=== PATIENT | female | born 1980 | race Asian ===

== ENCOUNTER 2017-08-22 16:31 | Inpatient (IN) | payer SELFPAY ==
[2017-08-22 16:57] LABS: URINE HCG POC HCG NEGATIVE (Negative)
[2017-08-22 16:59] LABS: POC GLUCOSE 259 mg/dL (70-99)
[2017-08-22 17:03] LABS: BILIRUBIN,URINE NEGATIVE (NEG); COLOR,URINE YELLOW; GLUCOSE,URINE 100 mg/dL (NEG); NITRITE,URINE NEGATIVE (NEG); PH,URINE 6.5; PROTEIN,URINE 100 mg/dL (NEG-TRACE)
[2017-08-22 17:11] LABS: CLARITY,URINE HAZY
[2017-08-22 17:13] LABS: BACTERIA,URINE MANY /HPF (0-FEW); SQUAMOUS EPITHELIAL CELL,UR FEW /LPF; WBC,URINE 20-40 /HPF (0-4)
[2017-08-22 17:16] LABS: ADD MAN DIFF? NO
[2017-08-22] MEDS: fentaNYL PF VIAL 100 MCG/2 ML VIAL IV (17:20)
[2017-08-22] MEDS: IV NORMAL SALINE 1000ML BAG 1,000 ML IV (17:20)
[2017-08-22] MEDS: ONDANSETRON PF 4 MG/2 ML VIAL. IV (17:20)
[2017-08-22 17:24] LABS: BASO # 0.1 x10^3/uL (0.0-0.2); BASO % 1 % (0-3); EOS # 0.1 x10^3/uL (0.0-0.7); EOS % 1 % (0-3); HEMATOCRIT 26.7 % (36.0-47.0); HEMOGLOBIN 9.1 g/dL (12.0-15.5); LYMPH # 1.4 x10^3/uL (1.0-4.8); LYMPH % 16 % (24-48); MEAN CORPUSCULAR HEMOGLOBIN 28 pg (25-35); MEAN CORPUSCULAR HGB CONC 34 g/dL (31-37); MEAN CORPUSCULAR VOLUME 81 fL (79-100); MONO % 11 % (0-9); NEUT # 6.4 x10^3uL (1.8-7.7); NEUT % 72 % (31-73); PLATELET COUNT 396 x10^3/uL (140-400); RED BLOOD COUNT 3.31 x10^6/uL (3.50-5.40); WHITE BLOOD COUNT 8.9 x10^3/uL (4.0-11.0)
[2017-08-22 17:36] LABS: ALBUMIN 2.3 g/dL (3.4-5.0); ALBUMIN/GLOBULIN RATIO 0.4 (1.0-1.7); ALK PHOS 260 U/L (46-116); ALT (SGPT) 10 U/L (14-59); ANION GAP 9 (6-14); AST (SGOT) 16 U/L (15-37); BLOOD UREA NITROGEN 18 mg/dL (7-20); BUN/CREATININE RATIO 13 (6-20); CALCIUM 8.3 mg/dL (8.5-10.1); CARBON DIOXIDE 23 mmol/L (21-32); CHLORIDE 91 mmol/L (98-107); CREATININE 1.4 mg/dL (0.6-1.0); GFR 41.9; GLUCOSE 260 mg/dL (70-99); LIPASE 186 U/L (73-393); SODIUM 123 mmol/L (136-145); TOTAL BILIRUBIN 0.7 mg/dL (0.2-1.0); TOTAL PROTEIN 8.2 g/dL (6.4-8.2)
[2017-08-22 17:44] LABS: CREATINE KINASE 15 U/L (26-192)
[2017-08-22 17:46] LABS: TROPONINI < 0.017 ng/mL (0.000-0.055)
[2017-08-22 17:46] LABS: CKMB INDEX 3.3 % (0-4); CKMB MASS < 0.5 ng/mL (0.0-3.6)
[2017-08-22 17:48] LABS: POTASSIUM 2.7 mmol/L (3.5-5.1)
[2017-08-22 17:57] LABS: LACTIC ACID 1.8 mmol/L (0.4-2.0)
[2017-08-22] MEDS ORDERED: CONTRAST GIVEN. MC (18:00)
[2017-08-22] MEDS: POTASSIUM CHLORIDE 20 MEQ TABLET.ER. PO (18:00)
[2017-08-22] MEDS: IOHEXOL 300 MG/ML 100ML VIAL. IV (18:05)
[2017-08-22 18:16] LABS: MAGNESIUM 1.8 mg/dL (1.8-2.4)
[2017-08-22] MEDS: POTASSIUM CL 40MEQ IN 0.9%NACL 1,000 ML IV ×2 (18:35→22:49)
[2017-08-22] MEDS ORDERED: DEXTROSE 50% 25 GM / 50ML DISP.SYRIN. IV (20:45)
[2017-08-22 20:59] LABS: POC GLUCOSE 190 mg/dL (70-99)
[2017-08-22] MEDS: C.DIFF MED SCREEN BY RX. MC (21:00)
[2017-08-22] MEDS: INSULIN LISPRO 300 UNITS/3 ML INSULN.PEN. SQ (21:00)
[2017-08-22] MEDS: ACETAMINOPHEN 500 MG TABLET PO (23:20)
[2017-08-23 05:09] LABS: POC GLUCOSE 177 mg/dL (70-99)
[2017-08-23] MEDS: INSULIN LISPRO 300 UNITS/3 ML INSULN.PEN. SQ ×4 (08:00→21:00)
[2017-08-23 08:13] LABS: ADD MAN DIFF? NO
[2017-08-23 08:18] LABS: BASO % 0 % (0-3); EOS # 0.1 x10^3/uL (0.0-0.7); EOS % 3 % (0-3); HEMATOCRIT 22.9 % (36.0-47.0); LYMPH # 1.3 x10^3/uL (1.0-4.8); LYMPH % 22 % (24-48); MEAN CORPUSCULAR HEMOGLOBIN 29 pg (25-35); MEAN CORPUSCULAR HGB CONC 35 g/dL (31-37); MEAN CORPUSCULAR VOLUME 82 fL (79-100); MONO # 0.7 x10^3/uL (0.0-1.1); MONO % 12 % (0-9); NEUT # 3.8 x10^3uL (1.8-7.7); NEUT % 63 % (31-73); PLATELET COUNT 368 x10^3/uL (140-400); RED BLOOD COUNT 2.81 x10^6/uL (3.50-5.40); RED CELL DISTRIBUTION WIDTH 14.1 % (11.5-14.5)
[2017-08-23 08:43] LABS: ALBUMIN/GLOBULIN RATIO 0.4 (1.0-1.7); ALK PHOS 248 U/L (46-116); ALT (SGPT) 10 U/L (14-59); ANION GAP 7 (6-14); AST (SGOT) 14 U/L (15-37); BLOOD UREA NITROGEN 14 mg/dL (7-20); BUN/CREATININE RATIO 12 (6-20); CALCIUM 8.1 mg/dL (8.5-10.1); CARBON DIOXIDE 22 mmol/L (21-32); CHLORIDE 104 mmol/L (98-107); CREATININE 1.2 mg/dL (0.6-1.0); GLUCOSE 154 mg/dL (70-99); POTASSIUM 4.3 mmol/L (3.5-5.1); SODIUM 133 mmol/L (136-145); TOTAL BILIRUBIN 0.4 mg/dL (0.2-1.0); TOTAL PROTEIN 7.4 g/dL (6.4-8.2)
[2017-08-23 10:48] LABS: BILIRUBIN,URINE NEGATIVE (NEG); CLARITY,URINE CLEAR; COLOR,URINE YELLOW; GLUCOSE,URINE 100 mg/dL (NEG); NITRITE,URINE NEGATIVE (NEG); PH,URINE 6.5; PROTEIN,URINE 30 mg/dL (NEG-TRACE)
[2017-08-23 10:56] LABS: RBC,URINE OCC /HPF (0-2)
[2017-08-23 10:57] LABS: BACTERIA,URINE 0 /HPF (0-FEW); SQUAMOUS EPITHELIAL CELL,UR FEW /LPF
[2017-08-23 11:25] LABS: POC GLUCOSE 142 mg/dL (70-99)
[2017-08-23] MEDS: POTASSIUM CL 40MEQ IN 0.9%NACL 1,000 ML IV (16:53)
[2017-08-23] MEDS: ACETAMINOPHEN 500 MG TABLET PO (16:58)
[2017-08-23 17:13] LABS: POC GLUCOSE 148 mg/dL (70-99)
[2017-08-23] MEDS: IV NORMAL SALINE 1000ML BAG 1,000 ML IV (18:30)
[2017-08-23] MEDS: cefTRIAXone IV Push 1 GM VIAL. IVP (21:33)
[2017-08-23] MEDS: LACTOBACILLUS RHAMNOSUS GG 1 CAPSULE. PO (21:33)
[2017-08-23 21:47] LABS: POC GLUCOSE 200 mg/dL (70-99)
[2017-08-24] MEDS ORDERED: LIDOCAINE 2% JELLY 6ML IN APPLICATOR. (06:51)
[2017-08-24] MEDS ORDERED: IOHEXOL 300 MG/ML 100ML VIAL. (06:51)
[2017-08-24] MEDS ORDERED: ONDANSETRON PF 4 MG/2 ML VIAL. IV ×2 (07:00→14:30)
[2017-08-24] MEDS: IV RINGERS,LACTATED 1000ML 1,000 ML IV (07:00)
[2017-08-24] MEDS ORDERED: LIDOCAINE 1% PF 2 ML VIAL. ID ×2 (07:00→14:30)
[2017-08-24] MEDS ORDERED: fentaNYL PF VIAL 100 MCG/2 ML VIAL IV ×3 (07:00→14:30)
[2017-08-24] MEDS ORDERED: MORPHINE SULFATE 2 MG/ML DISP.SYRIN. IV ×2 (07:00→14:30)
[2017-08-24] MEDS ORDERED: PROCHLORPERAZINE 10 MG/2 ML VIAL. IV ×2 (07:00→14:30)
[2017-08-24] MEDS: LACTOBACILLUS RHAMNOSUS GG 1 CAPSULE. PO ×2 (07:20→20:50)
[2017-08-24] MEDS: INSULIN LISPRO 300 UNITS/3 ML INSULN.PEN. SQ ×4 (07:20→21:26)
[2017-08-24] MEDS: IV NORMAL SALINE 1000ML BAG 1,000 ML IV (08:42)
[2017-08-24 11:59] LABS: HEMATOCRIT 23.6 % (36.0-47.0); MEAN CORPUSCULAR HEMOGLOBIN 28 pg (25-35); MEAN CORPUSCULAR HGB CONC 34 g/dL (31-37); MEAN CORPUSCULAR VOLUME 82 fL (79-100); PLATELET COUNT 502 x10^3/uL (140-400); RED BLOOD COUNT 2.88 x10^6/uL (3.50-5.40); RED CELL DISTRIBUTION WIDTH 14.5 % (11.5-14.5); WHITE BLOOD COUNT 4.6 x10^3/uL (4.0-11.0)
[2017-08-24 12:06] LABS: POC GLUCOSE 109 mg/dL (70-99)
[2017-08-24 12:12] LABS: ALBUMIN 2.1 g/dL (3.4-5.0); ALBUMIN/GLOBULIN RATIO 0.4 (1.0-1.7); ALK PHOS 286 U/L (46-116); ALT (SGPT) 10 U/L (14-59); ANION GAP 7 (6-14); AST (SGOT) 15 U/L (15-37); BLOOD UREA NITROGEN 9 mg/dL (7-20); BUN/CREATININE RATIO 8 (6-20); CALCIUM 8.4 mg/dL (8.5-10.1); CARBON DIOXIDE 25 mmol/L (21-32); CHLORIDE 106 mmol/L (98-107); CREATININE 1.1 mg/dL (0.6-1.0); GFR 55.3; GLUCOSE 120 mg/dL (70-99); SODIUM 138 mmol/L (136-145); TOTAL BILIRUBIN 0.6 mg/dL (0.2-1.0); TOTAL PROTEIN 7.5 g/dL (6.4-8.2)
[2017-08-24] MEDS ORDERED: IV RINGERS,LACTATED 1000ML 1,000 ML IV (14:21)
[2017-08-24] MEDS ORDERED: PROPOFOL 20 ML IV (14:27)
[2017-08-24] MEDS ORDERED: ONDANSETRON PF 4 MG/2 ML VIAL. (14:27)
[2017-08-24] MEDS ORDERED: LIDOCAINE 2% PF Vial for OR 5 ML VIAL. (14:27)
[2017-08-24] MEDS ORDERED: DEXAMETHASONE SOD PHOS 20 MG/5 ML VIAL. (14:27)
[2017-08-24] MEDS ORDERED: FAMOTIDINE 20 MG/2 ML VIAL (14:27)
[2017-08-24] MEDS ORDERED: MIDAZOLAM HCL/PF 2 MG/2 ML VIAL. (14:29)
[2017-08-24] MEDS ORDERED: KETOROLAC 30 MG/ML INJ FOR OR. INJ (14:31)
[2017-08-24] MEDS ORDERED: SEVOFLURANE 31 TO 60 MINUTES. IH (15:41)
[2017-08-24 16:13] LABS: POC GLUCOSE 99 mg/dL (70-99)
[2017-08-24] MEDS ORDERED: fentaNYL PF VIAL 100 MCG/2 ML VIAL (16:31)
[2017-08-24] MEDS: fentaNYL PF VIAL 100 MCG/2 ML VIAL IV (16:36)
[2017-08-24] MEDS: cefTRIAXone IV Push 1 GM VIAL. IVP (20:50)
[2017-08-24 21:17] LABS: POC GLUCOSE 279 mg/dL (70-99)
[2017-08-25] MEDS: ACETAMINOPHEN 500 MG TABLET PO ×3 (00:13→17:25)
[2017-08-25 04:17] LABS: POC GLUCOSE 424 mg/dL (70-99)
[2017-08-25] MEDS: IV NORMAL SALINE 1000ML BAG 1,000 ML IV ×3 (04:40→23:50)
[2017-08-25] MEDS: INSULIN LISPRO 300 UNITS/3 ML INSULN.PEN. SQ ×5 (04:44→20:58)
[2017-08-25 07:48] LABS: POC GLUCOSE 192 mg/dL (70-99)
[2017-08-25 07:55] LABS: POC GLUCOSE 143 mg/dL (70-99)
[2017-08-25] MEDS: LACTOBACILLUS RHAMNOSUS GG 1 CAPSULE. PO ×2 (08:58→20:57)
[2017-08-25 11:38] LABS: POC GLUCOSE 156 mg/dL (70-99)
[2017-08-25 16:37] LABS: POC GLUCOSE 167 mg/dL (70-99)
[2017-08-25] MEDS: cefTRIAXone IV Push 1 GM VIAL. IVP (20:58)
[2017-08-25 21:08] LABS: POC GLUCOSE 163 mg/dL (70-99)
[2017-08-26 02:51] LABS: POC GLUCOSE 255 mg/dL (70-99)
[2017-08-26] MEDS: INSULIN LISPRO 300 UNITS/3 ML INSULN.PEN. SQ ×5 (03:37→22:15)
[2017-08-26 07:52] LABS: POC GLUCOSE 217 mg/dL (70-99)
[2017-08-26] MEDS: LACTOBACILLUS RHAMNOSUS GG 1 CAPSULE. PO ×2 (08:47→21:42)
[2017-08-26] MEDS: ACETAMINOPHEN 500 MG TABLET PO (08:47)
[2017-08-26] MEDS: IV NORMAL SALINE 1000ML BAG 1,000 ML IV (10:33)
[2017-08-26 12:09] LABS: POC GLUCOSE 205 mg/dL (70-99)
[2017-08-26 15:27] LABS: ANION GAP 9 (6-14); BLOOD UREA NITROGEN 18 mg/dL (7-20); BUN/CREATININE RATIO 14 (6-20); CALCIUM 7.8 mg/dL (8.5-10.1); CARBON DIOXIDE 22 mmol/L (21-32); CHLORIDE 106 mmol/L (98-107); CREATININE 1.3 mg/dL (0.6-1.0); GFR 45.6; GLUCOSE 164 mg/dL (70-99); POTASSIUM 3.6 mmol/L (3.5-5.1); SODIUM 137 mmol/L (136-145)
[2017-08-26 15:34] LABS: ALBUMIN 1.8 g/dL (3.4-5.0); ALBUMIN/GLOBULIN RATIO 0.4 (1.0-1.7); ALK PHOS 447 U/L (46-116); ALT (SGPT) 33 U/L (14-59); AST (SGOT) 27 U/L (15-37); TOTAL BILIRUBIN 0.2 mg/dL (0.2-1.0); TOTAL PROTEIN 6.8 g/dL (6.4-8.2)
[2017-08-26 15:37] LABS: HEMATOCRIT 22.3 % (36.0-47.0); HEMOGLOBIN 7.5 g/dL (12.0-15.5); MEAN CORPUSCULAR HEMOGLOBIN 28 pg (25-35); MEAN CORPUSCULAR HGB CONC 33 g/dL (31-37); MEAN CORPUSCULAR VOLUME 83 fL (79-100); PLATELET COUNT 454 x10^3/uL (140-400); RED BLOOD COUNT 2.69 x10^6/uL (3.50-5.40); RED CELL DISTRIBUTION WIDTH 14.7 % (11.5-14.5); WHITE BLOOD COUNT 16.8 x10^3/uL (4.0-11.0)
[2017-08-26 16:48] LABS: POC GLUCOSE 145 mg/dL (70-99)
[2017-08-26 17:06] LABS: HEMATOCRIT 23.1 % (36.0-47.0); HEMOGLOBIN 7.8 g/dL (12.0-15.5); MEAN CORPUSCULAR HEMOGLOBIN 28 pg (25-35); MEAN CORPUSCULAR HGB CONC 34 g/dL (31-37); MEAN CORPUSCULAR VOLUME 82 fL (79-100); PLATELET COUNT 457 x10^3/uL (140-400); RED BLOOD COUNT 2.81 x10^6/uL (3.50-5.40); RED CELL DISTRIBUTION WIDTH 14.5 % (11.5-14.5); WHITE BLOOD COUNT 16.1 x10^3/uL (4.0-11.0)
[2017-08-26 17:17] LABS: ANION GAP 8 (6-14); BLOOD UREA NITROGEN 17 mg/dL (7-20); BUN/CREATININE RATIO 14 (6-20); CALCIUM 7.8 mg/dL (8.5-10.1); CARBON DIOXIDE 24 mmol/L (21-32); CHLORIDE 106 mmol/L (98-107); CREATININE 1.2 mg/dL (0.6-1.0); GLUCOSE 147 mg/dL (70-99); POTASSIUM 3.6 mmol/L (3.5-5.1); SODIUM 138 mmol/L (136-145)
[2017-08-26 17:20] LABS: ALBUMIN 1.9 g/dL (3.4-5.0); ALBUMIN/GLOBULIN RATIO 0.4 (1.0-1.7); ALK PHOS 455 U/L (46-116); ALT (SGPT) 33 U/L (14-59); AST (SGOT) 25 U/L (15-37); TOTAL BILIRUBIN 0.2 mg/dL (0.2-1.0); TOTAL PROTEIN 7.1 g/dL (6.4-8.2)
[2017-08-26 20:38] LABS: POC GLUCOSE 203 mg/dL (70-99)
[2017-08-26] MEDS: PIPERONYL BUTOXIDE/PYRETHRINS 118ML BOTTLE. TP (21:42)
[2017-08-26] MEDS: cefTRIAXone IV Push 1 GM VIAL. IVP (21:42)
[2017-08-27 08:20] LABS: POC GLUCOSE 182 mg/dL (70-99)
[2017-08-27 09:31] LABS: HEMATOCRIT 22.7 % (36.0-47.0); HEMOGLOBIN 7.7 g/dL (12.0-15.5); MEAN CORPUSCULAR HEMOGLOBIN 28 pg (25-35); MEAN CORPUSCULAR HGB CONC 34 g/dL (31-37); MEAN CORPUSCULAR VOLUME 82 fL (79-100); PLATELET COUNT 495 x10^3/uL (140-400); RED BLOOD COUNT 2.76 x10^6/uL (3.50-5.40); RED CELL DISTRIBUTION WIDTH 14.6 % (11.5-14.5); WHITE BLOOD COUNT 10.9 x10^3/uL (4.0-11.0)
[2017-08-27] MEDS: LACTOBACILLUS RHAMNOSUS GG 1 CAPSULE. PO ×2 (09:45→20:48)
[2017-08-27] MEDS: ACETAMINOPHEN 500 MG TABLET PO (09:47)
[2017-08-27] MEDS: INSULIN LISPRO 300 UNITS/3 ML INSULN.PEN. SQ ×4 (09:52→20:58)
[2017-08-27 12:10] LABS: POC GLUCOSE 138 mg/dL (70-99)
[2017-08-27 17:13] LABS: POC GLUCOSE 245 mg/dL (70-99)
[2017-08-27] MEDS: cefTRIAXone IV Push 1 GM VIAL. IVP (20:48)
[2017-08-27 21:21] LABS: POC GLUCOSE 218 mg/dL (70-99)
[2017-08-28] MEDS: INSULIN LISPRO 300 UNITS/3 ML INSULN.PEN. SQ (08:00)
[2017-08-28 08:33] LABS: POC GLUCOSE 199 mg/dL (70-99)
[2017-08-28 08:44] LABS: ADD MAN DIFF? NO
[2017-08-28 08:46] LABS: BASO % 0 % (0-3); EOS # 0.1 x10^3/uL (0.0-0.7); EOS % 1 % (0-3); HEMOGLOBIN 8.8 g/dL (12.0-15.5); LYMPH # 2.1 x10^3/uL (1.0-4.8); LYMPH % 30 % (24-48); MEAN CORPUSCULAR HEMOGLOBIN 28 pg (25-35); MEAN CORPUSCULAR HGB CONC 34 g/dL (31-37); MEAN CORPUSCULAR VOLUME 82 fL (79-100); MONO # 0.4 x10^3/uL (0.0-1.1); MONO % 5 % (0-9); NEUT # 4.3 x10^3uL (1.8-7.7); NEUT % 63 % (31-73); PLATELET COUNT 578 x10^3/uL (140-400); RED BLOOD COUNT 3.17 x10^6/uL (3.50-5.40); RED CELL DISTRIBUTION WIDTH 14.5 % (11.5-14.5); WHITE BLOOD COUNT 6.8 x10^3/uL (4.0-11.0)
[2017-08-28] MEDS: LACTOBACILLUS RHAMNOSUS GG 1 CAPSULE. PO (09:13)
[2017-08-28 09:29] LABS: ANION GAP 8 (6-14); BLOOD UREA NITROGEN 12 mg/dL (7-20); CALCIUM 8.7 mg/dL (8.5-10.1); CARBON DIOXIDE 26 mmol/L (21-32); CHLORIDE 102 mmol/L (98-107); CREATININE 1.1 mg/dL (0.6-1.0); GFR 55.3; GLUCOSE 224 mg/dL (70-99); POTASSIUM 3.6 mmol/L (3.5-5.1); SODIUM 136 mmol/L (136-145)
== END 2017-08-28 10:00 | disposition home or self-care (01) | DRG 669 ==
LOC: ER 16:31 → 5 SOUTH 18:45
PROC: 0TC68ZZ Extirpation of Matter from Right Ureter, Via Natural or Artificial Opening Endoscopic (ICD-10-PCS; principal; 2017-08-24 14:30)
PROC: 0T768DZ Dilation of Right Ureter with Intraluminal Device, Via Natural or Artificial Opening Endoscopic (ICD-10-PCS; 2017-08-24 14:30)
DX: N20.1 Calculus of ureter (principal); E87.1 Hypo-osmolality and hyponatremia; N12 Tubulo-interstitial nephritis, not specified as acute or chronic; E87.6 Hypokalemia; E11.9 Type 2 diabetes mellitus without complications; Z83.3 Family history of diabetes mellitus; Z87.442 Personal history of urinary calculi
CPT/HCPCS: 36415; 74177; 76000; 80048; 80053; 81001; 81025; 82553; 82962; 83605; 83690; 83735; 84484; 85025; 85027; 87086; 87186; 93005; 96361; 96365; 96368; 96375; 99285; 99285-25; A7015; C1769; C2617; J0690; J0696; J1100; J1815; J1885; J2001; J2250; J2405; J2704; J3010; J3480; J7030; J7120; Q9967; S0028

== ENCOUNTER 2017-12-21 20:54 | Emergency (ER) | payer SELFPAY ==
[~2017-12-21] VITALS: Ht 170.2 cm; Wt 54.4 kg
[~2017-12-21 20:54] MED LIST: CIPR250T30 PO; Fluconazole PO; GLYB2.5T2 PO; INSU100I17 SQ; INSU100I27 SQ; METF500T16 PO
[2017-12-21 21:11] VITALS: BP 114/68
[2017-12-21] MEDS ORDERED: KETOROLAC 60 MG/2 ML INJ. IM ONE (21:15)
[2017-12-21] MEDS ORDERED: TRAM-48 PO (21:17)
[2017-12-21] MEDS ORDERED: SULF1TAB24 PO (21:17)
--- NOTE | 2017-12-21 21:18 | PHYS DOC ---
Past Medical History Past Medical History: Diabetes-Type II, UTI Past Surgical History: Other Additional Past Surgical Histo: 08/01/17 URETERAL STENT Alcohol Use: None Drug Use: None Adult General Chief Complaint Chief Complaint: FACE PAIN HPI HPI Patient is a 37 year old F who presents with an abscess to the end of her nose. While the RN was checking the patient in, she moved the nose and a moderate amount of pus was expressed. Onset about 3 days ago. Patient denies fever, chills, n/v. Review of Systems Review of Systems Constitutional: Denies fever or chills [] HENT: Abscess and swelling to end of nose with purulent drainage. Respiratory: Denies cough or shortness of breath [] Cardiovascular: No additional information not addressed in HPI [] GI: Denies nausea, vomiting Neurologic: Denies headache, focal weakness or sensory changes [] All other systems were reviewed and found to be within normal limits, except as documented in this note. Current Medications Current Medications Current Medications Medications (Trade) Dose Ordered Sig/Felisa Start Time Stop Time Status Last Admin Dose Admin Ketorolac Tromethamine (Toradol Im) 60 mg 1X ONCE 12/21/17 21:15 12/21/17 21:16 DC 12/21/17 21:23 60 MG Allergies Allergies Allergies Coded Allergies Type Severity Reaction Last Updated Verified No Known Drug Allergies 08/16/16 No Physical Exam Physical Exam Constitutional: Well developed, well nourished, no acute distress, non-toxic appearance. [] HENT: Normocephalic, atraumatic, tip of nose swelling and erythema with purulent drainage from the inner right nares Eyes: PERRLA, EOMI, conjunctiva normal, no discharge. [] Neck: Normal range of motion, no tenderness, supple, no stridor. [] Skin: Warm, dry, no erythema, no rash. [] Neurologic: Alert and oriented X 3, normal motor function, normal sensory function, no focal deficits noted. [] Psychologic: Affect normal, judgement normal, mood normal. [] Current Patient Data Vital Signs Vital Signs Date Time Temp Pulse Resp B/P (MAP) Pulse Ox O2 Delivery O2 Flow Rate FiO2 12/21/17 21:11 98.2 110 20 114/68 (83) 97 Room Air 98.2 EKG EKG [] Radiology/Procedures Radiology/Procedures [] Course & Med Decision Making Course & Med Decision Making Pertinent Labs and Imaging studies reviewed. (See chart for details) Plan: warm compresses, bactrim rx, ultram rx, f/u with PCP, strict return precautions Dragrajesh Disclaimer Dragon Disclaimer This electronic medical record was generated, in whole or in part, using a voice recognition dictation system. Departure Departure Impression: Primary Impression: Nasal abscess Disposition: HOME, SELF-CARE Condition: GOOD Referrals: YESENIA STOKES MD Patient Instructions: Abscess Scripts Tramadol Hcl (ULTRAM) 50 Mg Tablet 1-2 TAB PO Q6HRS, #15 TAB Prov: YAW JAMISON APRN 12/21/17 Sulfamethoxazole/Trimethoprim (BACTRIM DS TABLET) 1 Each Tablet 1 TAB PO BID, #20 TAB Prov: YAW JAMISON APRN 12/21/17 Attending Signature Attending Signature I have reviewed the PA/WELFARE SPECIALIST's note and plan of care. I was available for consultation as needed during the patient's visit in the emergency department. I agree with the clinical impression, plan, and disposition. YAW JAMISON APRN Dec 21, 2017 21:17 JOSUE ARREOLA DO Dec 22, 2017 03:10
== END 2017-12-21 21:29 | disposition home or self-care (01) ==
LOC: ER 20:54
DX: J34.0 Abscess, furuncle and carbuncle of nose (principal); E11.9 Type 2 diabetes mellitus without complications; Z87.440 Personal history of urinary (tract) infections
CPT/HCPCS: 96372; 99283; J1885

== ENCOUNTER 2018-05-08 01:12 | Inpatient (IN) | payer SELFPAY ==
[~2018-05-08] VITALS: Ht 152.4 cm; Wt 52.6 kg
[~2018-05-08 01:12] MED LIST changes: +AMOX1TAB61 PO; +LACT1CAP19 PO; +SULF1TAB24 PO; +TRAM-48 PO
[2018-05-08 01:51] LABS: BASO % 0 % (0-3); EOS % 1 % (0-3); HEMATOCRIT 32.6 % (36.0-47.0); HEMOGLOBIN 10.7 g/dL (12.0-15.5); LYMPH # 1.4 x10^3/uL (1.0-4.8); LYMPH % 17 % (24-48); MEAN CORPUSCULAR HEMOGLOBIN 27 pg (25-35); MEAN CORPUSCULAR HGB CONC 33 g/dL (31-37); MEAN CORPUSCULAR VOLUME 82 fL (79-100); MONO # 0.4 x10^3/uL (0.0-1.1); MONO % 5 % (0-9); NEUT # 6.2 x10^3uL (1.8-7.7); NEUT % 77 % (31-73); PLATELET COUNT 293 x10^3/uL (140-400); RED BLOOD COUNT 3.99 x10^6/uL (3.50-5.40); RED CELL DISTRIBUTION WIDTH 12.6 % (11.5-14.5)
[2018-05-08 02:01] LABS: PROTHROMBIN TIME PATIENT 11.7 SEC (11.7-14.0)
[2018-05-08 02:10] LABS: ALBUMIN 2.9 g/dL (3.4-5.0); ALBUMIN/GLOBULIN RATIO 0.5 (1.0-1.7); CREATININE 1.4 mg/dL (0.6-1.0); GFR 41.6; POTASSIUM 3.6 mmol/L (3.5-5.1); TOTAL BILIRUBIN 0.3 mg/dL (0.2-1.0); TOTAL PROTEIN 8.7 g/dL (6.4-8.2)
[2018-05-08 02:31] LABS: BILIRUBIN,URINE NEGATIVE (NEG); CLARITY,URINE CLEAR; COLOR,URINE YELLOW; NITRITE,URINE NEGATIVE (NEG); PROTEIN,URINE 30 mg/dL (NEG-TRACE); UROBILINOGEN,URINE 0.2 mg/dL (0.2 mg/dL)
--- NOTE | 2018-05-08 02:32 | PHYS DOC ---
Past Medical History Past Medical History: Diabetes-Type II, UTI Past Surgical History: Other Additional Past Surgical Histo: 08/01/17 URETERAL STENT Alcohol Use: None Drug Use: None Adult General Chief Complaint Chief Complaint: CHEST PAIN HPI HPI Patient is a 38 yo female who presents with complaint of abdominal pain that began around 2100 Sunday evening. She reports the pain began about an hour after eating food. She indicates the pain is in her epigastrium adn RUQ and is squeezing in nature. She reports the pain does not radiate anywhere. She reports she has had similar episodic pain before d/t language barrier (daughter is translating) it is difficulty to elicit further information about previous episodes. She reports she had one episode of diarrhea yesterday and noticed some blood on paper after wiping, however she denies seeing blood in toilet. She admits to some pain w/ urination. She has never had any abdominal surgeries. When asked if it is possible that she is , daughter reported that mother has not had a period since mom was 26yo. Patient did not take any medication to help with symptoms. Patient reports she has felt hot at home but did not take temperature to discern if she has fever. Per daughter the patient has diabetes but ran out of metformin. Review of Systems Review of Systems Constitutional: Denies fever, chills. Admits to feeling hot occasionally HENT: Denies nasal congestion or sore throat [] Respiratory: Denies cough or shortness of breath [] Cardiovascular: Denies chest pain or palpitations GI: Admits "squeezing" abdominal pain, indicates pain in RUQ. : Denies hematuria. Admits dysuria Musculoskeletal: Denies back pain or joint pain [] Integument: Denies rash or skin lesions [] All other systems were reviewed and found to be within normal limits, except as documented in this note. Current Medications Current Medications Current Medications Medications (Trade) Dose Ordered Sig/Felisa Start Time Stop Time Status Last Admin Dose Admin Insulin Human Regular (HumuLIN R VIAL) 10 unit 1X ONCE 05/08/18 03:00 05/08/18 03:01 DC 05/08/18 02:52 10 UNIT Multi-Ingredient Mouthwash/Gargle (Gi Cocktail) 20 ml 1X ONCE 05/08/18 03:00 05/08/18 03:01 DC 05/08/18 02:50 20 ML Allergies Allergies Allergies Coded Allergies Type Severity Reaction Last Updated Verified No Known Drug Allergies 08/16/16 No Physical Exam Physical Exam Constitutional: Thin, fatigued, nontoxic appearing HENT: Normocephalic, atraumatic Eyes: PERRLA, EOMI, conjunctiva normal, no discharge. [] Neck: Normal range of motion Cardiovascular:Heart regular rhythm. Rate tachycardic, no murmur [] Lungs & Thorax: Bilateral breath sounds clear to auscultation [] Abdomen: Abdomen soft, no discoloration, no scars. Moderately tender to palpation, particularly in RUQ Extremities: No tenderness, no cyanosis, no clubbing, ROM intact, no edema. [] Neurologic: Alert and oriented X 3, normal motor function, normal sensory function, no focal deficits noted. [] Current Patient Data Vital Signs Vital Signs Date Time Temp Pulse Resp B/P (MAP) Pulse Ox O2 Delivery O2 Flow Rate FiO2 05/08/18 01:20 98.1 99 20 150/86 (107) 99 Room Air 98.1 Lab Values Laboratory Tests Test 05/08/18 01:30 05/08/18 01:35 05/08/18 01:42 05/08/18 02:11 White Blood Count 8.0 x10^3/uL (4.0-11.0) Red Blood Count 3.99 x10^6/uL (3.50-5.40) Hemoglobin 10.7 g/dL (12.0-15.5) L Hematocrit 32.6 % (36.0-47.0) L Mean Corpuscular Volume 82 fL (79-100) Mean Corpuscular Hemoglobin 27 pg (25-35) Mean Corpuscular Hemoglobin Concent 33 g/dL (31-37) Red Cell Distribution Width 12.6 % (11.5-14.5) Platelet Count 293 x10^3/uL (140-400) Neutrophils (%) (Auto) 77 % (31-73) H Lymphocytes (%) (Auto) 17 % (24-48) L Monocytes (%) (Auto) 5 % (0-9) Eosinophils (%) (Auto) 1 % (0-3) Basophils (%) (Auto) 0 % (0-3) Neutrophils # (Auto) 6.2 x10^3uL (1.8-7.7) Lymphocytes # (Auto) 1.4 x10^3/uL (1.0-4.8) Monocytes # (Auto) 0.4 x10^3/uL (0.0-1.1) Eosinophils # (Auto) 0.0 x10^3/uL (0.0-0.7) Basophils # (Auto) 0.0 x10^3/uL (0.0-0.2) Prothrombin Time 11.7 SEC (11.7-14.0) Prothrombin Time INR 0.9 (0.8-1.1) Sodium Level 127 mmol/L (136-145) L Potassium Level 3.6 mmol/L (3.5-5.1) Chloride Level 92 mmol/L (98-107) L Carbon Dioxide Level 22 mmol/L (21-32) Anion Gap 13 (6-14) Blood Urea Nitrogen 21 mg/dL (7-20) H Creatinine 1.4 mg/dL (0.6-1.0) H Estimated GFR (Cockcroft-Gault) 41.6 BUN/Creatinine Ratio 15 (6-20) Glucose Level 664 mg/dL (70-99) *H Calcium Level 9.0 mg/dL (8.5-10.1) Total Bilirubin 0.3 mg/dL (0.2-1.0) Aspartate Amino Transferase (AST) 54 U/L (15-37) H Alanine Aminotransferase (ALT) 69 U/L (14-59) H Alkaline Phosphatase 379 U/L (46-116) H Troponin I Quantitative < 0.017 ng/mL (0.000-0.055) Total Protein 8.7 g/dL (6.4-8.2) H Albumin 2.9 g/dL (3.4-5.0) L Albumin/Globulin Ratio 0.5 (1.0-1.7) L Lipase 452 U/L (73-393) H Urine Collection Type Unknown Urine Color Yellow Urine Clarity Clear Urine pH 6.0 Urine Specific [place] 1.025 Urine Protein 30 mg/dL (NEG-TRACE) Urine Glucose (UA) >=1000 mg/dL (NEG) Urine Ketones (Stick) Negative mg/dL (NEG) Urine Blood Small (NEG) Urine Nitrite Negative (NEG) Urine Bilirubin Negative (NEG) Urine Urobilinogen Dipstick 0.2 mg/dL (0.2 mg/dL) Urine Leukocyte Esterase Negative (NEG) Urine RBC 6-10 /HPF (0-2) Urine WBC 1-4 /HPF (0-4) Urine Squamous Epithelial Cells Few /LPF Urine Bacteria 0 /HPF (0-FEW) POC Urine HCG, Qualitative Hcg negative (Negative) Glucose (Fingerstick) 556 mg/dL (70-99) *H Laboratory Tests 05/08/18 01:30 Laboratory Tests 05/08/18 01:30 EKG EKG [@0120; HR 100 BPM; sinus rhythm. No ST elevation or areas of ischemia appreciated. RR' in leads II, V6.] Radiology/Procedures Radiology/Procedures [ED Prelim read CXR: No acute radiographic abnormality appreciated.] Course & Med Decision Making Course & Med Decision Making Pertinent Labs and Imaging studies reviewed. (See chart for details) []38-year-old female history of poorly controlled diabetes apparent poor medical literacy not on any diabetes medicines at this time Presenting with upper abdominal discomfort initially did complain of chest pain in triage there is a bit of a language barrier family insists on interpreting for this patient Troponin EKG were negative serial troponins were ordered for today Ultrasound showed no gallstones Lipase was mildly elevated of uncertain significance perhaps there is mild pancreatitis Blood sugar was quite elevated but there was no anion gap gave a dose of insulin we gave IV fluids it was coming down somewhat however patient was still symptomatic will be admitted to the service of Dr. Lyons per usual local protocol For management of hyperglycemia possible mild pancreatitis serial troponins Dragon Disclaimer Dragon Disclaimer This electronic medical record was generated, in whole or in part, using a voice recognition dictation system. Departure Departure Impression: Primary Impression: Hyperglycemia Additional Impression: Abdominal pain Disposition: ADMITTED INPATIENT Admitting Physician: Other Condition: STABLE Referrals: NO PCP (PCP) Problem Qualifiers GUADALUPE KUMAR MD May 08, 2018 02:32
[2018-05-08 02:52] LABS: BACTERIA,URINE 0 /HPF (0-FEW); SQUAMOUS EPITHELIAL CELL,UR FEW /LPF
[2018-05-08] MEDS ORDERED: LIDO:MAALOX 1:1 20 ML SINGLE DOSE. SWSW ONE (03:00)
[2018-05-08] MEDS ORDERED: INSULIN REGULAR 100 UNIT/ML 3ML VIAL. IV ONE (03:00)
--- NOTE | 2018-05-08 03:13 | RAD ---
INDICATION: RUQ PAIN COMPARISON: CT August 22, 2017 TECHNIQUE: Grayscale and color ultrasound images obtained through the abdomen. FINDINGS: Aorta/IVC: Limited visualization secondary to bowel gas. Pancreas: Largely obscured by bowel gas. Liver: Echotexture within normal limits. Gallbladder: Partially contracted. The somewhat limits exam. Common Bile Duct: Not dilated. Right Kidney: No hydronephrosis. IMPRESSION: 1. Gallbladder is partially contracted without common bile duct dilation. Electronically signed by: Des Ruano MD (05/08/2018 3:09 AM) [facility]
[2018-05-08] MEDS ORDERED: fentaNYL PF VIAL 100 MCG/2 ML VIAL IV ONE (03:30)
[2018-05-08 04:00] VITALS: BP 135/87
[2018-05-08] MEDS ORDERED: DEXTROSE 50% 25 GM / 50ML DISP.SYRIN. IV PRN ×2 (04:15→09:15)
[2018-05-08] MEDS ORDERED: ONDANSETRON ODT 4 MG TAB.RAPDIS. ONE ×2 (04:18→04:19)
--- NOTE | 2018-05-08 04:30 | NUR ---
The patient, MILLI ORLANDO, 38 y/o, F admitted by MICHAEL FELDMAN MD, was given written information regarding hospital policies, unit procedures and contact persons. Valuables were checked and left with the patient.
[2018-05-08] MEDS: IV NORMAL SALINE 1000ML BAG 1,000 ML IV SCH ×2 (04:39→13:39)
[2018-05-08] MEDS ORDERED: ONDANSETRON ODT 4 MG TAB.RAPDIS. PO ONE (06:00)
[2018-05-08 07:00] VITALS: BP 114/68
--- NOTE | 2018-05-08 07:22 | EKG ---
[facility] [address] [place] [address] Test Date: 2018-05-08 Test Time: 05:19:45 Pat Name: MILLI ORLANDO Department: Room: 512 1 Gender: Tipple Supervisor: : 1980 Requested By: GUADALUPE KUMAR Order Number: [id number] Reading MD: Norris Candelario MD Measurements Intervals [place] Rate: P: RI: QRS: QRSD: T: QT: QTc: Interpretive Statements SR MISSING LEADS Electronically Signed On 05-10-2018 16:21:26 CDT by Norris Candelario MD
--- NOTE | 2018-05-08 07:35 | RAD ---
PROCEDURE: PORTABLE CHEST 1V CLINICAL INDICATION: chest pain COMPARISON: None FINDINGS: No pneumothorax identified. Cardiac and mediastinal contours unremarkable. No pulmonary consolidation or acute airspace disease. No acute osseous abnormalities identified. IMPRESSION: No pulmonary consolidation or acute airspace disease. Electronically signed by: Oscar Rangel DO (05/08/2018 7:31 AM) [facility]
[2018-05-08] MEDS: INSULIN LISPRO 300 UNITS/3 ML INSULN.PEN. SQ SCH ×4 (10:29→17:28)
--- NOTE | 2018-05-08 10:56 | HP ---
ADMIT DATE: 05/08/2018 CHIEF COMPLAINT: Chest pain. HISTORY OF PRESENT ILLNESS: The patient is a pleasant 38-year-old female from [facility], she speaks Chuukese. Her daughter is translating. Basically, she presents with some chest pain. It occurred after eating food, rated at 9/10, has some associated nausea. It is in the right upper quadrant and in the chest, squeezing in nature. I have admitted this patient before for similar issues. While she is in the ER, she is also noted to be hyperglycemic with a glucose of 600. Her lipase is high at 452. She is noncompliant with her meds, we believe. I have discussed the case with the ER physician. We are going to admit the patient with pancreatitis and hyperglycemia. PAST MEDICAL HISTORY: Diabetes, noncompliance, ureteral stent. ALLERGIES: None. FAMILY HISTORY: Hypertension. SOCIAL HISTORY: She does not drink, smoke or take drugs. MEDICATIONS: Reviewed, please refer to the MRAD. She is on Augmentin, Bactrim, Ultram, Culturelle, and metformin, but she has not been taking her metformin. REVIEW OF SYSTEMS: GENERAL: No history of weight change, weakness or fevers. SKIN: No bruising, hair changes or rashes. EYES: No blurred, double or loss of vision. NOSE AND THROAT: No history of nosebleeds, hoarseness or sore throat. HEART: She complains of chest discomfort. LUNGS: Denies cough, hemoptysis, wheezing or shortness of breath. GASTROINTESTINAL: She complains of abdominal pain. GENITOURINARY: No history of frequency, urgency, hesitancy or nocturia. NEUROLOGIC: Denies history of numbness, tingling, tremor or weakness. PSYCHIATRIC: No history of panic, anxiety or depression. ENDOCRINE: No history of heat or cold intolerance, polyuria or polydipsia. EXTREMITIES: Denies muscle weakness, joint pain, pain on walking or stiffness. PHYSICAL EXAMINATION: VITAL SIGNS: Temperature afebrile, pulse 92, respirations 18, blood pressure 144/90. HEART: Normal S1, S2. LUNGS: Clear to auscultation. ABDOMEN: Soft. Decreased bowel sounds, tender. EXTREMITIES: Trace edema. SKIN: No rashes. ENDOCRINE: No thyromegaly. LYMPHATICS: No cervical nodes. HEMATOPOIETIC: No bruising. PSYCHIATRIC: She is depressed. LABORATORY DATA: Hemoglobin is 10.7. Glucose was 600 and is now down to 339 with some sliding scale insulin and fluids. Troponin is 0. Lipase high at 452. Ultrasound shows a partially contracted gallbladder, but no dilatation. Chest x-ray negative. ASSESSMENT AND PLAN: Hyperglycemia, pancreatitis, noncompliance, pain and anemia. The patient is being admitted. We will give her sliding scale insulin, IV fluids, frequent Accu-Cheks. I am going to check her lipase level daily. P.r.n. narcotics. Hope to start a clear liquid diet soon if she is feeling better. DVT prophylaxis. Full code. Home meds, p.r.n. [place], p.r.n. fentanyl. MICHAEL KAUR DO DR: ASHWINI/estela JOB#: [id number] / [id number]
[2018-05-08 11:00] VITALS: BP 106/68
[2018-05-08 12:21] LABS: CHOLESTEROL/HDL RATIO 3.8
[2018-05-08 15:00] VITALS: BP 114/75
[2018-05-08 19:00] VITALS: BP_SYST 115; BP_SYST 95; BP_DIAS 55; BP_DIAS 92
[2018-05-08 23:00] VITALS: BP 108/63
[2018-05-09] MEDS: IV NORMAL SALINE 1000ML BAG 1,000 ML IV SCH (00:09)
[2018-05-09 03:04] VITALS: BP 131/62
[2018-05-09 07:15] VITALS: BP 101/65
[2018-05-09] MEDS: INSULIN LISPRO 300 UNITS/3 ML INSULN.PEN. SQ SCH ×2 (09:04→11:46)
--- NOTE | 2018-05-09 10:44 | PDOC ---
PROGRESS NOTES Chief Complaint Chief Complaint Abdominal Pain Chest Pain Hyperglycemia- improving Elevated Lipase- resolved Anemia- mild H/o DM2- noncompliant Cymro- non-Djiboutian speaking History of Present Illness History of Present Illness Pt was seen and examined this morning Family was present at bedside She was sleeping upon arrival to the room Through daughter as manager wealth management- Pt is feeling better this morning, hoped to be discharged today if providers agree Vitals Vitals Vital Signs Date Time Temp Pulse Resp B/P (MAP) Pulse Ox O2 Delivery O2 Flow Rate FiO2 05/09/18 07:15 98.1 88 16 101/65 (77) 98 Room Air 98.1 Physical Exam General: Alert, Oriented X3, Cooperative, No acute distress Heart: Regular rate, No murmurs Lungs: Clear Abdomen: Normal bowel sounds, Soft Extremities: No clubbing, No cyanosis Skin: No rashes, No significant lesion Labs LABS Laboratory Tests Test 05/08/18 12:01 05/08/18 16:46 05/08/18 20:59 05/09/18 07:20 Glucose (Fingerstick) 238 mg/dL (70-99) 182 mg/dL (70-99) 171 mg/dL (70-99) 242 mg/dL (70-99) Review of Systems Review of Systems Pt reports mild abd pain- much improved Pt denies CP, SANCHES, n/v/d Assessment and Plan Assessmemt and Plan Assessment Abdominal Pain Chest Pain Hyperglycemia- improving Elevated Lipase- resolved ?Pancreatitis Anemia- mild H/o DM2- noncompliant Cymro- non-Djiboutian speaking Plan Hope to D/C today following PO intake Advance diet today, if tolerated then D/C ok by us Lipase reviewed- decreased wnl to 268 Triglycerides reviewed- wnl at 61 Lipids normal except- LDL at 115 Home meds Encourage strict compliance with DM2 treatment and outpt provider f/u PT/OT Comment Review of Relevant I have reviewed the following items laure (where applicable) has been applied. Labs Laboratory Tests Test 05/08/18 01:30 05/08/18 01:35 05/08/18 01:42 05/08/18 02:11 White Blood Count 8.0 x10^3/uL (4.0-11.0) Red Blood Count 3.99 x10^6/uL (3.50-5.40) Hemoglobin 10.7 g/dL (12.0-15.5) Hematocrit 32.6 % (36.0-47.0) Mean Corpuscular Volume 82 fL (79-100) Mean Corpuscular Hemoglobin 27 pg (25-35) Mean Corpuscular Hemoglobin Concent 33 g/dL (31-37) Red Cell Distribution Width 12.6 % (11.5-14.5) Platelet Count 293 x10^3/uL (140-400) Neutrophils (%) (Auto) 77 % (31-73) Lymphocytes (%) (Auto) 17 % (24-48) Monocytes (%) (Auto) 5 % (0-9) Eosinophils (%) (Auto) 1 % (0-3) Basophils (%) (Auto) 0 % (0-3) Neutrophils # (Auto) 6.2 x10^3uL (1.8-7.7) Lymphocytes # (Auto) 1.4 x10^3/uL (1.0-4.8) Monocytes # (Auto) 0.4 x10^3/uL (0.0-1.1) Eosinophils # (Auto) 0.0 x10^3/uL (0.0-0.7) Basophils # (Auto) 0.0 x10^3/uL (0.0-0.2) Prothrombin Time 11.7 SEC (11.7-14.0) Prothromb Time International Ratio 0.9 (0.8-1.1) Sodium Level 127 mmol/L (136-145) Potassium Level 3.6 mmol/L (3.5-5.1) Chloride Level 92 mmol/L (98-107) Carbon Dioxide Level 22 mmol/L (21-32) Anion Gap 13 (6-14) Blood Urea Nitrogen 21 mg/dL (7-20) Creatinine 1.4 mg/dL (0.6-1.0) Estimated GFR (Cockcroft-Gault) 41.6 BUN/Creatinine Ratio 15 (6-20) Glucose Level 664 mg/dL (70-99) Calcium Level 9.0 mg/dL (8.5-10.1) Total Bilirubin 0.3 mg/dL (0.2-1.0) Aspartate Amino Transf (AST/SGOT) 54 U/L (15-37) Alanine Aminotransferase (ALT/SGPT) 69 U/L (14-59) Alkaline Phosphatase 379 U/L (46-116) Troponin I Quantitative < 0.017 ng/mL (0.000-0.055) Total Protein 8.7 g/dL (6.4-8.2) Albumin 2.9 g/dL (3.4-5.0) Albumin/Globulin Ratio 0.5 (1.0-1.7) Lipase 452 U/L (73-393) Urine Collection Type Unknown Urine Color Yellow Urine Clarity Clear Urine pH 6.0 Urine Specific [place] 1.025 Urine Protein 30 mg/dL (NEG-TRACE) Urine Glucose (UA) >=1000 mg/dL (NEG) Urine Ketones (Stick) Negative mg/dL (NEG) Urine Blood Small (NEG) Urine Nitrite Negative (NEG) Urine Bilirubin Negative (NEG) Urine Urobilinogen Dipstick 0.2 mg/dL (0.2 mg/dL) Urine Leukocyte Esterase Negative (NEG) Urine RBC 6-10 /HPF (0-2) Urine WBC 1-4 /HPF (0-4) Urine Squamous Epithelial Cells Few /LPF Urine Bacteria 0 /HPF (0-FEW) Bedside Urine HCG, Qualitative Hcg negative (Negative) Glucose (Fingerstick) 556 mg/dL (70-99) Test 05/08/18 03:47 05/08/18 07:20 05/08/18 07:48 05/08/18 09:45 Glucose (Fingerstick) 320 mg/dL (70-99) 339 mg/dL (70-99) Troponin I Quantitative < 0.017 ng/mL (0.000-0.055) < 0.017 ng/mL (0.000-0.055) Triglycerides Level 61 mg/dL (0-150) Cholesterol Level 172 mg/dL (0-200) LDL Cholesterol, Calculated 115 mg/dL (0-100) VLDL Cholesterol, Calculated 12 mg/dL (0-40) Non-HDL Cholesterol Calculated 127 mg/dL (0-129) HDL Cholesterol 45 mg/dL (40-60) Cholesterol/HDL Ratio 3.8 Lipase 268 U/L (73-393) Test 05/08/18 12:01 05/08/18 16:46 05/08/18 20:59 05/09/18 07:20 Glucose (Fingerstick) 238 mg/dL (70-99) 182 mg/dL (70-99) 171 mg/dL (70-99) 242 mg/dL (70-99) Laboratory Tests Test 05/08/18 12:01 05/08/18 16:46 05/08/18 20:59 05/09/18 07:20 Glucose (Fingerstick) 238 mg/dL (70-99) 182 mg/dL (70-99) 171 mg/dL (70-99) 242 mg/dL (70-99) Medications Current Medications Multi-Ingredient Mouthwash/Gargle (Gi Cocktail) 20 ml 1X ONCE SWSW Last administered on 05/08/18at 02:50; Start 05/08/18 at 03:00; Stop 05/08/18 at 03:01 ; Status DC Insulin Human Regular (HumuLIN R VIAL) 10 unit 1X ONCE IV Last administered on 05/08/18at 02:52; Start 05/08/18 at 03:00; Stop 05/08/18 at 03:01; Status DC Fentanyl Citrate (Fentanyl 2ml Vial) 50 mcg 1X ONCE IV Last administered on at 03:46; Start 05/08/18 at 03:30; Stop 05/08/18 at 03:31; Status DC Sodium Chloride 1,000 ml @ 100 mls/hr Q10H IV Last administered on 05/09/18at 00:09; Start 05/08/18 at 04:00; Stop 05/09/18 at 03:59; Status DC Dextrose (Dextrose 50%-Water Syringe) 12.5 gm PRN Q15MIN PRN IV SEE COMMENTS; Start 05/08/18 at 04:15; Stop 05/08/18 at 09:07; Status DC Ondansetron HCl (Zofran Odt) 4 mg STK-MED ONCE .ROUTE ; Start 05/08/18 at 04:18 ; Stop 05/08/18 at 04:19; Status DC Ondansetron HCl (Zofran Odt) 4 mg STK-MED ONCE .ROUTE ; Start 05/08/18 at 04:19 ; Stop 05/08/18 at 04:20; Status DC Ondansetron HCl (Zofran Odt) 4 mg 1X ONCE PO Last administered on 05/08/18at 05 :26; Start 05/08/18 at 06:00; Stop 05/08/18 at 06:01; Status DC Insulin Human Lispro (HumaLOG) 0-7 UNITS TIDWMEALS SQ Last administered on 05/09at 09:04; Start 05/08/18 at 09:30 Dextrose (Dextrose 50%-Water Syringe) 12.5 gm PRN Q15MIN PRN IV SEE COMMENTS; Start 05/08/18 at 09:15 Active Scripts Active Augmentin 875-125 Tablet (Amoxicillin/Potassium Clav) 1 Each Tablet 1 Tab PO BID 10 Days Culturelle (Lactobacillus Rhamnosus Gg) 1 Each Cap.sprink 1 Cap PO BID 10 Days Bactrim Ds Tablet (Sulfamethoxazole/Trimethoprim) 1 Each Tablet 1 Tab PO BID 3 Days Ultram (Tramadol Hcl) 50 Mg Tablet 1-2 Tab PO Q6HRS Reported Glyburide 2.5 Mg Tablet 1 Tab PO BID Metformin Hcl 500 Mg Tablet 500 Mg PO BIDWMEALS Vitals/I & O Vital Sign - Last 24 Hours 05/08/18 05/08/18 05/08/18 05/08/18 11:00 15:00 19:00 20:00 Temp 97.7 98.2 98.3 97.7 98.2 98.3 Pulse 89 91 92 Resp 18 18 20 B/P (MAP) 106/68 (81) 114/75 (88) 95/55 (68) Pulse Ox 99 99 99 O2 Delivery Room Air Room Air Room Air Room Air 05/08/18 05/09/18 05/09/18 23:00 03:04 07:15 Temp 97.7 97.2 98.1 97.7 97.2 98.1 Pulse 86 89 88 Resp 20 18 16 B/P (MAP) 108/63 (78) 131/62 (85) 101/65 (77) Pulse Ox 98 99 98 O2 Delivery Room Air Room Air Room Air Intake and Output 05/08/18 05/08/18 05/09/18 15:00 23:00 07:00 Intake Total 500 ml 250 ml 50 ml Balance 500 ml 250 ml 50 ml MICHAEL KAUR K III DO May 09, 2018 10:44
[2018-05-09 11:05] VITALS: BP 126/75
--- NOTE | 2018-05-09 14:20 | DS ---
DATE OF DISCHARGE: 05/09/2018 ADMISSION DIAGNOSES: 1. Chest pain. 2. Abdominal pain. 3. Pancreatitis. 4. Hyperglycemia. 5. Diabetes, probable noncompliance. DISCHARGE DIAGNOSES: 1. Resolving pancreatitis. 2. Resolving atypical chest pain, suspect secondary to the pancreatitis. 3. Resolving abdominal pain. 4. Resolving hyperglycemia. 5. Noncompliance, diabetes. 6. History of ureteral stent. HOSPITAL COURSE: The patient is a pleasant 38-year-old female presented with some chest pain and abdominal pain. It occurred after eating food. It is in the right upper quadrant. While in the ER, she is noted to have some mild pancreatitis and hyperglycemia. Her lipase was 452. Glucose was greater than 600. She was admitted. We gave her fluids and insulin. Rechecked her lipase this morning, it came down to 268 within normal limits. Her glucose is trending down, is ranging around 171-242. Clinically, she looked great this morning. Her heart tones are normal. Her lungs were clear. We plan to advance her diet and if she tolerates that, discharge this afternoon. DISPOSITION: Home. ACTIVITY: As tolerated. DIET: Low sodium. MEDICATIONS: Please see the MRAD. TOTAL TIME: 36 minutes. MICHAEL KAUR DO DR: ASHWINI/estela JOB#: [id number] / [id number]
[2018-05-09 15:01] VITALS: BP 120/66
--- NOTE | 2018-05-09 16:04 | NUR ---
Discharge teaching provided written and verbal to pt's daughter,understanding verbalized. Pt dismissed to home with all belongings accompanied by her daughter and . Transported to exit per w/c at 1522.
== END 2018-05-09 15:22 | disposition home or self-care (01) | DRG 637 ==
LOC: ER 01:12 → 5 NORTH 03:00
PROVIDERS: ADMIT Internal Medicine; ATTEND Internal Medicine
DX: E11.65 Type 2 diabetes mellitus with hyperglycemia (principal); K85.90 Acute pancreatitis without necrosis or infection, unspecified; Z82.49 Family history of ischemic heart disease and other diseases of the circulatory system; Z91.19 Patient's noncompliance with other medical treatment and regimen; Z91.14 Patient's other noncompliance with medication regimen; D64.9 Anemia, unspecified
CPT/HCPCS: 36415; 71045; 76705; 80053; 80061; 81001; 81025; 82962; 83690; 84484; 85025; 85610; 93005; 96374; 96375; J1815; J3010; J7030; Q0162; 99285-25

== ENCOUNTER 2020-08-25 13:24 | Emergency (ER) | payer SELFPAY ==
[~2020-08-25] VITALS: Ht 157.5 cm; Wt 56.8 kg
--- NOTE | 2020-08-25 14:40 | ED.ADGEN ---
Past Medical History Past Medical History: Diabetes-Type II, UTI Past Surgical History: Other Additional Past Surgical Histo: 08/01/17 URETERAL STENT Smoking Status: Never Smoker Alcohol Use: None Drug Use: None General Adult EDM: Chief Complaint: ABSCESS HPI: HPI: Patient is a 40 female who arrives ambulatory to the emergency department complaining of an abscess to her scalp. Patient reports this began bothering her yesterday and she has had continued pain with any palpation. Despite having this abscess she denies any fevers. She further denies rash or lesion elsewhere. She is awake, alert and nontoxic-appearing. Review of Systems: Review of Systems: Constitutional: Denies fever or chills. [] Eyes: Denies change in visual acuity. [] HENT: Denies nasal congestion or sore throat. [] Respiratory: Denies cough or shortness of breath. [] Cardiovascular: Denies chest pain or edema. [] GI: Denies abdominal pain, nausea, vomiting, bloody stools or diarrhea. [] : Denies dysuria. [] Musculoskeletal: Denies back pain or joint pain. [] Integument: Reports abscess. Denies rash. [] Neurologic: Denies headache, focal weakness or sensory changes. [] Endocrine: Denies polyuria or polydipsia. [] Lymphatic: Denies swollen glands. [] Psychiatric: Denies depression or anxiety. [] Current Medications: Current Medications Medications (Trade) Dose Ordered Sig/Felisa Start Time Stop Time Status Last Admin Dose Admin Lidocaine/ Epinephrine (LIDOCAINE 1%-EPI 1:100,000 Multi-Dose) 20 ml 1X ONCE 08/25/20 14:45 08/25/20 14:46 DC Allergies: Allergies: Allergies Coded Allergies Type Severity Reaction Last Updated Verified No Known Drug Allergies 08/16/16 No Physical Exam: PE: Constitutional: Well developed, well nourished, no acute distress, non-toxic appearance. [] HENT: Patient has a small abscess at the anterior portion of her scalp. This is solitary and not draining. Normocephalic, atraumatic, bilateral external ears normal, oropharynx moist, no oral exudates, nose normal. [] Eyes: PERRLA, EOMI, conjunctiva normal, no discharge. [] Neck: Normal range of motion, no tenderness, supple, no stridor. [] Cardiovascular:Heart rate regular rhythm, no murmur [] Lungs & Thorax: Bilateral breath sounds clear to auscultation [] Abdomen: Bowel sounds normal, soft, no tenderness, no masses, no pulsatile masses. [] Skin: Small abscess to scalp. Warm, dry, no erythema, no rash. [] Back: No tenderness, no CVA tenderness. [] Extremities: No tenderness, no cyanosis, no clubbing, ROM intact, no edema. [] Neurologic: Alert and oriented X 3, normal motor function, normal sensory function, no focal deficits noted. [] Psychologic: Affect normal, judgement normal, mood normal. [] Current Patient Data: Vital Signs: Vital Signs Date Time Temp Pulse Resp B/P (MAP) Pulse Ox O2 Delivery O2 Flow Rate FiO2 08/25/20 14:40 98.3 99 16 143/76 (98) 100 Room Air 98.3 EKG: EKG: [] Heart Score: C/O Chest Pain: No Risk Factors: Risk Factors: DM, Current or recent (<one month) smoker, HTN, HLP, family history of CAD, obesity. Risk Scores: Score 0 - 3: 2.5% MACE over next 6 weeks - Discharge Home Score 4 - 6: 20.3% MACE over next 6 weeks - Admit for Clinical Observation Score 7 - 10: 72.7% MACE over next 6 weeks - Early Invasive Strategies Radiology/Procedures: Radiology/Procedures: [] Course & Med Decision Making: Course & Med Decision Making Pertinent Labs and Imaging studies reviewed. (See chart for details) [] Dragon Disclaimer: Dragon Disclaimer: This electronic medical record was generated, in whole or in part, using a voice recognition dictation system. Incision and Drainage Incision and Drainage : Site: Anterior scalp Blade Size: 11 I & D Procedure: betadine prep Progress A moderate amount of pus was drained after incision. The patient tolerated the procedure well and immediately verbalized relief. Quarter-inch packing was placed and I explained to the patient's family member that this needed to be removed in 2 days and exchange if there is continued drainage. Departure Departure Impression: Primary Impression: Abscess, scalp Disposition: HOME / SELF CARE / HOMELESS Condition: IMPROVED Referrals: NO PCP (PCP) Patient Instructions: Abscess Scripts Sulfamethoxazole/Trimethoprim (BACTRIM DS TABLET) 1 Each Tablet 2 TAB PO BID for infection for 10 Days, #40 TAB Prov: RODRIGUEZ LIZ DO 08/25/20 RODRIGUEZ LIZ DO Aug 25, 2020 14:40
[2020-08-25] MEDS ORDERED: LIDOCAINE 1%/EPI 1:100,000 20 ML VIAL. INJ ONE (14:45)
[2020-08-25] MEDS ORDERED: SULF1TAB24 PO (15:08)
[2020-08-25 17:00] VITALS: BP 144/76
== END 2020-08-25 17:32 | disposition home or self-care (01) ==
LOC: ER 13:24
DX: L02.811 Cutaneous abscess of head [any part, except face] (principal); E11.9 Type 2 diabetes mellitus without complications
CPT/HCPCS: 10060; 99283; J3490